=== PATIENT | male | born 1995 | race Two or more races ===

== ENCOUNTER 2024-05-09 20:18 | Emergency (ER) | payer OTHER ==
[~2024-05-09] VITALS: Ht 188 cm; Wt 122.5 kg
[2024-05-09] MEDS ORDERED: FAMOTIDINE/PF 20 MG in 0.9 % SODIUM CHLORIDE 8 ML IV PUSH STA (21:03)
[2024-05-09] MEDS ORDERED: CEFTRIAXONE SODIUM 2,000 MG VIAL IV ONE (21:15)
[2024-05-09] MEDS ORDERED: KETOROLAC TROMETHAMINE 30 MG VIAL IV ONE (21:15)
[2024-05-09] MEDS ORDERED: 0.9 % SODIUM CHLORIDE 1,000 ML IV SCH (21:15)
[2024-05-09] MEDS ORDERED: ONDANSETRON HCL 2 MG/ML VIAL IV ONE (21:15)
[2024-05-09 21:16] LABS: HEMATOCRIT 37.7 % (39.0-48.0); MEAN CELL VOLUME 81.4 fL (80.0-100.00); MEAN CORPUSCULAR HEMOGLOBIN 28.1 pg (27.00-32.0); MEAN CORPUSCULAR HGB CONC 34.5 g/dl (32.0-36.0); PLATELET COUNT 244 K/uL (150-450); RED BLOOD COUNT 4.63 M/uL (4.00-6.00); RED CELL DISTRIBUTION WIDTH 14.2 % (11.5-14.5)
[2024-05-09 21:41] LABS: ALBUMIN 3.4 gm/dL (3.4-5.0); BILIRUBIN TOTAL 0.59 mg/dL (0.3-1.2); CREATININE SERUM 1.07 mg/dL (0.70-1.30); GFR 82.9; POTASSIUM 3.63 mEq/L (3.5-5.1); TOTAL PROTEIN 8.4 gm/dL (6.4-8.2)
[2024-05-09] MEDS ORDERED: ACETAMINOPHEN 500 MG GEL..CAP PO ONE (22:15)
[2024-05-09] MEDS ORDERED: AMOX-CLAV 875-1 EACH PO (22:45)
[2024-05-09] MEDS ORDERED: ONDANSETRON ODT8 MG PO (22:45)
[2024-05-09] MEDS ORDERED: PEPCID AC20 MG PO (22:45)
== END 2024-05-09 22:53 | disposition home or self-care (01) ==
LOC: ER 20:20
PROVIDERS: General Practice
DX: R11.2 Nausea with vomiting, unspecified (principal); J03.90 Acute tonsillitis, unspecified; R11.10 Vomiting, unspecified